=== PATIENT | male | born 1990 | race Two or more races ===

== ENCOUNTER 2018-01-27 17:24 | Emergency (ER) | payer SELFPAY ==
[~2018-01-27] VITALS: Ht 180.3 cm; Wt 71.7 kg
[2018-01-27 17:25] VITALS: BP 118/77
[2018-01-27] MEDS ORDERED: DIPH,PERTUSS(ACELL),TET VAC/PF 0.5 ML IM-VACC ONE (17:30)
== END 2018-01-27 18:35 | disposition left against medical advice (07) ==
LOC: ED 18:29
DX: S69.92XA Unspecified injury of left wrist, hand and finger(s), initial encounter (principal); Z53.21 Procedure and treatment not carried out due to patient leaving prior to being seen by health care provider; X58.XXXA Exposure to other specified factors, initial encounter; Y92.89 Other specified places as the place of occurrence of the external cause; Y99.8 Other external cause status; Y93.89 Activity, other specified
CPT/HCPCS: 99281

== ENCOUNTER 2018-09-15 18:43 | Emergency (ER) | payer OTHER ==
[~2018-09-15] VITALS: Ht 180.3 cm; Wt 73.4 kg
[2018-09-15 18:55] VITALS: BP 129/75
== END 2018-09-15 19:59 | disposition home or self-care (01) ==
LOC: ED 19:35
DX: J02.8 Acute pharyngitis due to other specified organisms (principal); F17.200 Nicotine dependence, unspecified, uncomplicated
CPT/HCPCS: 87081; 87880; 99283

== ENCOUNTER 2019-06-22 20:12 | Emergency (ER) | payer MEDICAID, OTHER ==
[~2019-06-22] VITALS: Ht 180.3 cm; Wt 74.1 kg
[2019-06-22 20:43] VITALS: BP 113/69
[2019-06-22] MEDS ORDERED: KETOROLAC 30 MG/1 ML IM ONE (23:00)
[2019-06-22] MEDS ORDERED: CYCLOBENZAPRINE 10 MG TABLET PO ONE (23:00)
[2019-06-22] MEDS ORDERED: CYCLOBENZAPRINE 10 MG TABLET ONE (23:38)
[2019-06-22] MEDS ORDERED: KETOROLAC 30 MG/1 ML ONE (23:38)
== END 2019-06-22 23:58 | disposition home or self-care (01) ==
LOC: ED 23:30
DX: G89.11 Acute pain due to trauma (principal); M54.2 Cervicalgia; M25.512 Pain in left shoulder; M62.838 Other muscle spasm; V49.09XA Driver injured in collision with other motor vehicles in nontraffic accident, initial encounter; Y93.89 Activity, other specified; Y92.410 Unspecified street and highway as the place of occurrence of the external cause; Y99.8 Other external cause status
CPT/HCPCS: 72125; 73030; 96372; 99284; J1885